=== PATIENT | male | born 1975 | race African-American/Black ===

== ENCOUNTER 2017-08-12 18:16 | Emergency (ER) | payer BC, OTHER ==
[~2017-08-12] VITALS: Ht 193 cm; Wt 106.6 kg
[2017-08-12 19:53] VITALS: BP 153/103
[2017-08-12] MEDS ORDERED: KETOROLAC TROMETH 60MG/2ML VIAL IM ONE (20:15)
[2017-08-12] MEDS ORDERED: METHOCARBAMOL 500 MG TAB PO ONE (20:45)
== END 2017-08-12 21:18 | disposition home or self-care (01) ==
LOC: ER 18:16
DX: S00.83XA Contusion of other part of head, initial encounter (principal); V43.52XA Car driver injured in collision with other type car in traffic accident, initial encounter; Y93.89 Activity, other specified; Y99.8 Other external cause status; Y92.410 Unspecified street and highway as the place of occurrence of the external cause
CPT/HCPCS: 99283; J1885